=== PATIENT | female | born 1955 | race Two or more races ===

== ENCOUNTER 2023-11-06 20:06 | Emergency (ER) | payer MEDICARE, OTHER ==
[~2023-11-06] VITALS: Ht 170.2 cm; Wt 81.6 kg
[2023-11-06 20:53] VITALS: TEMP 99
[2023-11-06] MEDS ORDERED: ONDANSETRON HCL/PF 4 MG/2 ML VIAL ONE (21:19)
[2023-11-06] MEDS ORDERED: MORPHINE SULFATE INJ 2 MG/ML DISP.SYRIN ONE (21:19)
[2023-11-06] MEDS: IV NS 0.9% 1,000 ML BAG IV ONE (21:25)
[2023-11-06] MEDS: ONDANSETRON HCL/PF 4 MG/2 ML VIAL IV ONE (21:25)
[2023-11-06] MEDS: MORPHINE SULFATE INJ 2 MG/ML DISP.SYRIN IV ONE (21:27)
[2023-11-06 21:36] LABS: APPEARANCE,URINE Clear (CLEAR); BILIRUBIN,URINE SMALL (NEGATIVE); BLOOD, URINE Moderate Ery/uL (NEGATIVE); COLOR,URINE YELLOW (YELLOW); KETONES,URINE >=160 mg/dL (NEGATIVE); LEUKOCYTE ESTERASE ,URINE Negative (NEGATIVE); NITRITE, URINE Negative (NEGATIVE); PH,URINE 5.5 (5.0-8.0); PROTEIN,URINE 30 mg/dl (NEGATIVE); UGLUCOSE >=1000 mg/dL (NEGATIVE); UROBILINOGEN,URINE 0.2 EU/dL (0.2)
[2023-11-06 21:37] LABS: WBC,URINE 0-2 /HPF (0-3)
[2023-11-06 21:39] LABS: ADD URINE CULTURE NO; BACTERIA,URINE Few /HPF (None Seen); SQUAMOUS EPITHELIAL CELL,UR Few /HPF (None Seen)
[2023-11-06 21:43] LABS: PREGNANCY TEST URINE QUAL NEGATIVE (NEGATIVE)
[2023-11-06 21:44] LABS: BASOPHILS # (AUTO) 0.1 K/uL (0.0-0.2); BASOPHILS % (AUTO) 0.5 % (0.0-2.0); EOSINOPHILS % (AUTO) 0.3 % (0.0-6.0); HEMATOCRIT 38 % (33-45); HEMOGLOBIN 12.2 g/dL (11.5-14.8); LYMPHOCYTES # (AUTO) 2.2 K/uL (0.8-4.8); LYMPHOCYTES % (AUTO) 19.8 % (20.0-44.0); MEAN CORPUSCULAR HEMOGLOBIN 27 PG (26.0-33.0); MEAN CORPUSCULAR HGB CONC 32 g/dl (31.0-36.0); MEAN CORPUSCULAR VOLUME 83 fL (82-100); MONOCYTES # (AUTO) 0.6 K/uL (0.1-1.30); MONOCYTES % (AUTO) 5.6 % (2.0-12.0); NEUTROPHILS # (AUTO) 8.2 K/uL (1.8-8.9); NEUTROPHILS % (AUTO) 73.8 % (43.0-81.0); PLATELET COUNT (AUTO) 330 K/uL (150-450); RED BLOOD CELL COUNT(AUTO) 4.52 MIL/uL (4.0-5.2); RED CELL DISTRIBUTION WIDTH 12.7 % (11.5-15.0); WHITE BLOOD COUNT (AUTO) 11.2 K/uL (4.3-11.0)
[2023-11-06 22:06] LABS: ALBUMIN 3.8 g/dL (3.4-5.0); BILIRUBIN,DIRECT 0.2 mg/dL (0.0-0.2); BILIRUBIN,TOTAL 0.8 mg/dL (0.2-1.0); CALCIUM, SERUM 8.9 mg/dL (8.5-10.1); CREATININE 0.8 mg/dL (0.6-1.3); POTASSIUM 3.9 mmol/L (3.5-5.1); TOTAL PROTEIN, SERUM 7.2 g/dL (6.4-8.2)
[2023-11-07] MEDS ORDERED: MAG355OR18 PO (00:11)
[2023-11-07] MEDS ORDERED: FAMO-131 PO (00:11)
[2023-11-07] MEDS ORDERED: MAG HYDROX/AL HYDROX/SIMETH 30 ML UDC ONE (00:12)
[2023-11-07] MEDS ORDERED: FAMOTIDINE (20 MG) 20 MG TABLET ONE (00:13)
[2023-11-07] MEDS ORDERED: LIDOCAINE VISCOUS 2% UD 15 ML UDC ONE (00:13)
[2023-11-07] MEDS: MAG HYDROX/AL HYDROX/SIMETH 30 ML UDC PO ONE (00:18)
[2023-11-07] MEDS: FAMOTIDINE (20 MG) 20 MG TABLET PO ONE (00:18)
[2023-11-07] MEDS: LIDOCAINE VISCOUS 2% UD 15 ML UDC MM ONE (00:18)
[2023-11-07 01:35] VITALS: BP 147/76; O2SAT 99
== END 2023-11-07 01:35 | disposition home or self-care (01) ==
LOC: ER 20:10
DX: R10.13 Epigastric pain (principal); R19.5 Other fecal abnormalities; R11.2 Nausea with vomiting, unspecified; I10 Essential (primary) hypertension; E11.9 Type 2 diabetes mellitus without complications
CPT/HCPCS: 99285; 74176; 96374; 96361; 96375; 93005; 85025; 80048; 83690; 80076; 84703; 81001; 36415; 84484; J2405; J7030; J2270